=== PATIENT | female | born 1980 | race Caucasian/White ===

== ENCOUNTER 2017-01-31 17:46 | Emergency (ER) | payer MEDICAID ==
[~2017-01-31] VITALS: Ht 167.6 cm; Wt 126.6 kg
[2017-01-31 18:17] VITALS: BP 123/64
--- NOTE | 2017-01-31 18:22 | NUR ---
PT AMBULATED TO BED 3 AT THIS TIME.
--- NOTE | 2017-01-31 18:24 | NUR ---
36F BIB FAMILY C/O RT KNEE PAIN, THROBBING, NON-RADIATING, 8/10 X 1 YEAR; PT STATES PAIN HAS WORSENED IN 3 DAYS; PT DENIES TRAUMA OR INJURY TO SITE; NO REDNESS, SWELLING, OR LOSS OF SENSATION NOTED TO SITE AT THIS TIME; PT A&OX4, BL LUNG SOUNDS CLEAR, RR EVEN/UNLABORED, SKIN IS WARM/DRY/INTACT AT THIS TIME; PT DENIES N/V/D AT THIS TIME; PT RESTING IN BED W/ HOB ELEVATED AND IN LOWEST POSITION; POSITIONED FOR COMFORT; ER MD MADE AWARE OF STATUS. WILL CONTINUE TO MONITOR.
[2017-01-31] MEDS ORDERED: KETOROLAC 60 MG/2 ML VIAL IM ONE (18:35)
[2017-01-31 19:08] VITALS: BP 123/64
--- NOTE | 2017-01-31 19:09 | NUR ---
Patient discharged with v/s stable. Written and verbal after care instructions given and explained. Patient alert, oriented and verbalized understanding of instructions. Ambulatory with steady gait. All questions addressed prior to discharge. ID band removed. Patient advised to follow up with PMD. Rx of NORCO AND MOTRIN given. Patient educated on indication of medication including possible reaction and side effects. Opportunity to ask questions provided and answered.
== END 2017-01-31 19:09 | disposition home or self-care (01) ==
LOC: MED 17:46
PROC: 3E033GC Introduction of Other Therapeutic Substance into Peripheral Vein, Percutaneous Approach (ICD-10-PCS; principal; 2017-01-31)
DX: M25.561 Pain in right knee (principal)
CPT/HCPCS: 96372; 99283; J1885

== ENCOUNTER 2018-08-24 18:58 | Emergency (ER) | payer MEDICAID, OTHER ==
[~2018-08-24] VITALS: Ht 165.1 cm; Wt 119.3 kg
[2018-08-24 19:03] VITALS: BP 149/90
--- NOTE | 2018-08-24 19:05 | NUR ---
PT TRIAGED, GIVEN URINE CUP AND SENT TO LOBBY. NAD NOTED AND VSS.
[2018-08-24 19:32] LABS: BASOPHILS % (AUTO) 0.4 % (0.0-2.0); EOSINOPHILS # (AUTO) 0.2 K/uL (0-0.4); EOSINOPHILS % (AUTO) 1.8 % (0.0-4.0); HEMATOCRIT 39.9 % (36-48); HEMOGLOBIN 13.1 g/dL (12.0-16.0); LYMPHOCYTES # (AUTO) 3.2 K/uL (2.5-16.5); LYMPHOCYTES % (AUTO) 29.9 % (20.5-51.1); MEAN CORPUSCULAR HEMOGLOBIN 29 pg (27-31); MEAN CORPUSCULAR HGB CONC 33 g/dL (33-37); MONOCYTES # (AUTO) 0.3 K/uL (0.8-1.0); MONOCYTES % (AUTO) 2.9 % (1.7-9.3); PLATELET COUNT (AUTO) 400 K/uL (140-450); RED BLOOD CELL COUNT(AUTO) 4.59 MIL/uL (4.20-5.40); RED CELL DISTRIBUTION WIDTH 14.7 % (11.6-13.7); WHITE BLOOD COUNT (AUTO) 10.8 K/uL (4.8-10.8)
[2018-08-24 19:46] LABS: ANION GAP 12.1 (8-16); CARBON DIOXIDE 28.5 mmol/L (21-32); CREATININE 0.8 mg/dL (0.6-1.3); POTASSIUM 3.6 mmol/L (3.5-5.1)
--- NOTE | 2018-08-24 20:15 | NUR ---
PT TAKEN TO BED 1
--- NOTE | 2018-08-24 20:16 | NUR ---
PT MOVED TO BED 2
--- NOTE | 2018-08-24 20:21 | NUR ---
PT C/O VAGINAL BLEEDING X 30 MIN AND BROWN DISCHARGE X PAST FEW WEEKS. PT STATES SHE IS 8 WEEKS . NO PAIN NOTED. NOT SOAKING ANY PADS AT THIS TIME. . HX: NONE
[2018-08-24 21:45] VITALS: BP 132/89
== END 2018-08-24 21:46 | disposition home or self-care (01) ==
LOC: MED 18:58
DX: O03.9 Complete or unspecified spontaneous abortion without complication (principal)
CPT/HCPCS: 36415; 80048; 81002; 81025; 85025; 86900; 86901; 99284